=== PATIENT | female | born 1955 | race Two or more races ===

== ENCOUNTER 2025-02-26 21:11 | Inpatient (IN) | payer OTHER ==
[~2025-02-26] VITALS: Ht 154.9 cm; Wt 54.0 kg
--- NOTE | 2025-02-26 21:43 | NUR ---
PACIENTE ALERTA Y ORIENTADA X3, ACOMPANADA DE HIJA. REFIEREN 5 BENITEZ CON VOMITOS, DOLOR ABDOMINAL Y HOY JADEN EVACUACION CON HERNANDO.
[2025-02-26] MEDS ORDERED: FAMOTIDINE/PF 20 MG/2 ML VIAL IV ONE (22:30)
[2025-02-26] MEDS ORDERED: METRONIDAZOLE/SODIUM CHLORIDE 500 MG/100 ML PIGGYBACK IV ONE ×2 (22:30→23:23)
[2025-02-26] MEDS ORDERED: CIPROFLOXACIN IN 5 % DEXTROSE 400 MG/200 ML PIGGYBAG IV ONE ×2 (22:30→23:23)
[2025-02-26] MEDS ORDERED: 0.9 % SODIUM CHLORIDE 1,000 ML IV SCH (22:30)
[2025-02-26] MEDS ORDERED: FAMOTIDINE/PF 20 MG/2 ML VIAL ONE (23:23)
--- NOTE | 2025-02-27 00:35 | NUR ---
SE EDUCA A PACIENTE SOBRE TRATAMIENTO MEDICO EL CUAL REFIERE ENTENDER SE REALIZA COLECCION DE MUESTRAS BRADY ORDEN MEDICA Y BAJO MEDIDAS ASEPTOCAS.
[2025-02-27] MEDS ORDERED: KETOROLAC TROMETHAMINE 30 MG VIAL ONE (00:40)
[2025-02-27 00:47] LABS: BASO % 0.3 % (0.1-1.2); EOS # 0.01 (0.04-0.54); EOS % 0.1 % (0.7-7.0); LYMPH # 1.07 (1.18-3.74); LYMPH % 7.8 % (19.3-53.1); MEAN PLATELET VOLUME 10.60 fl (9.4-12.4); MONO # 0.81 (0.24-0.82); MONO % 5.9 % (4.7-12.5); NEUT # 11.72 (1.56-6.13); NEUT % 85.5 % (34.0-71.1); RED CELL DISTRIBUTION WIDTH 16.3 % (11.6-14.4)
[2025-02-27 00:50] LABS: URINE APPEARANCE Cloudy; URINE BILIRRUBIN Negative (NEGATIVE); URINE BLOOD Negative; URINE COLOR Dark Yellow; URINE GLUCOSE Negative (NEGATIVE); URINE LEUKOCYTE Trace; URINE NITRATE Negative; URINE PROTEIN 30 (NEGATIVE); URINE UROBILINOGEN 1.0 E.U./dl
[2025-02-27 00:54] LABS: URINE BACTERIA 49.1 uL (0.0-1933); URINE CAST 2.63 uL (0.0-1.40); URINE EPITHELIAL CELLS 22.7 uL (0.0-38.8); URINE RBC 17.3 uL (0.0-20.8); URINE WBC 9.2 uL (0.0-23.2)
[2025-02-27 01:00] LABS: COVID-19 AG NEGATIVE (NEGATIVE)
[2025-02-27 01:00] LABS: URINE KETONE 40 (NEGATIVE)
[2025-02-27 01:01] LABS: ERYTHROCYTE SEDIMENTATION RATE 106 mm/hr (0-30)
[2025-02-27 01:08] LABS: ALT/SGPT 26.0 U/L (12-78); AST/SGOT 31.0 U/L (15-37); BILIRUBIN TOTAL 0.67 mg/dL (0.3-1.2); BUN CREA RATIO 17.0 (7.0-25.0); CREATININE SERUM 0.53 mg/dL (0.55-1.02); GFR 113.72; GLOBULINA 4.5 G/DL (2.4-3.5); GLUCOSE FASTING 135.0 mg/dL (65-100); OSMOLALITY SERUM 278.0 MOSM/KG (275-295)
[2025-02-27 02:24] LABS: URINE MUCUS HEAVY
--- NOTE | 2025-02-27 07:49 | NUR ---
SE RECIBE PTE FEMENINA DE 69 YR ALERTA CONCIENTE Y TRANQUILA EN MYRTLE CON BARANDAS ELEVADA. SE LE GINETTE S/V Y SE DOCUEMTA SE MANTRIENE ORIENTADA DE NADA POR BOCA NPO Y SE MANTIENE BAJO OBSERVACION.
[2025-02-27] MEDS ORDERED: LIDOCAINE HCL VISCOUS 20MG/ML BLIST 15ML MM ONE (08:22)
--- NOTE | 2025-02-27 08:46 | NUR ---
SE LE INCERTA TUBO NASOGASTRICO STEPHANIE 14 EN FOSA NASAL DERCHA CON SUBCION INTERMITENTE. SE GINETTE MEDIDAS ASEPTICA EN EL PROCEDIMIENTO. SE MANTIENE BAJO OBSERVACION.
[2025-02-27] MEDS ORDERED: PANTOPRAZOLE SODIUM 40 MG/VIAL VIAL IV SCH (12:08)
[2025-02-27] MEDS ORDERED: PIPERACILLIN/TAZOBACTAM SODIUM 3.375 GM in 0.9 % SODIUM CHLORIDE 100 ML IV SCH (12:08)
[2025-02-27] MEDS ORDERED: MORPHINE SULFATE 4 MG/ML CARTRIDGE IV PRN (12:15)
[2025-02-27] MEDS ORDERED: AA 2.36%/D6.8W/FAT/E-LYTES NO9 1,440 ML IV SCH (17:00)
[2025-02-27 19:39] LABS: INR 1.11
[2025-02-27 19:51] LABS: BUN CREA RATIO 23.0 (7.0-25.0); CHOL HDL RATIO 4.1 (0-5.0); CREATININE SERUM 0.31 mg/dL (0.55-1.02); GFR 211.15; GLUCOSE FASTING 101.0 mg/dL (65-100); HDL 45.0 mg/dl (40-60); LDL 131.0 mg/dl (0-130); OSMOLALITY SERUM 274.0 MOSM/KG (275-295); VLDL 9.0 (0-39)
[2025-02-28 03:04] VITALS: BP 122/73; O2SAT 98
[2025-02-28 08:35] VITALS: BP 133/71; O2SAT 97
[2025-02-28] MEDS ORDERED: SODIUM CL 0.9% 100 ML IV.SOLN IV ONE (19:13)
[2025-02-28 19:20] VITALS: BP 153/57
[2025-02-28 19:23] VITALS: BP 145/80
[2025-03-01 01:15] VITALS: BP 140/79; O2SAT 96
[2025-03-01 07:50] LABS: BASO % 0.6 % (0.1-1.2); EOS # 0.25 (0.04-0.54); EOS % 3.0 % (0.7-7.0); LYMPH # 0.68 (1.18-3.74); LYMPH % 8.1 % (19.3-53.1); MEAN PLATELET VOLUME 10.70 fl (9.4-12.4); MONO # 0.75 (0.24-0.82); MONO % 9.0 % (4.7-12.5); NEUT # 6.60 (1.56-6.13); NEUT % 78.8 % (34.0-71.1); RED CELL DISTRIBUTION WIDTH 16.1 % (11.6-14.4)
[2025-03-01 09:51] VITALS: BP 145/80; O2SAT 98
[2025-03-01] MEDS ORDERED: DEXTROSE 50 % IN WATER 0.5 G/ML DISP.SYRIN IV PRN (11:45)
[2025-03-01] MEDS ORDERED: OxyCODONE HCL 5 MG TABLET (ROXICODONE) PO PRN (11:45)
[2025-03-01] MEDS ORDERED: ONDANSETRON HCL 2 MG/ML VIAL IV PRN (11:45)
[2025-03-01] MEDS ORDERED: RINGERS SOLUTION,LACTATED 1,000 ML IV SCH (11:45)
[2025-03-01] MEDS ORDERED: MORPHINE SULFATE 4 MG/ML CARTRIDGE IV PRN (11:45)
[2025-03-01] MEDS ORDERED: LIDOCAINE HCL 1% 20 ML VIAL IJ ONE (12:45)
[2025-03-01] MEDS ORDERED: BUPIVACAINE HCL 30 ML VIAL IJ ONE (12:45)
[2025-03-01] MEDS ORDERED: GABAPENTIN 300 MG CAPSULE PO SCH (13:00)
[2025-03-01] MEDS ORDERED: HYOSCYAMINE SULFATE 0.125 MG TAB.SUBL SL SCH (13:00)
[2025-03-01] MEDS ORDERED: ACETAMINOPHEN 500 MG GEL..CAP PO SCH (14:00)
[2025-03-01] MEDS ORDERED: SUGAMMADEX SODIUM 200 MG/2 ML VIAL IV ONE (14:30)
[2025-03-01 16:43] LABS: BASO % 0.3 % (0.1-1.2); EOS # 0.27 (0.04-0.54); EOS % 2.4 % (0.7-7.0); LYMPH # 1.09 (1.18-3.74); LYMPH % 9.5 % (19.3-53.1); MEAN PLATELET VOLUME 10.50 fl (9.4-12.4); MONO # 0.60 (0.24-0.82); MONO % 5.2 % (4.7-12.5); NEUT # 9.37 (1.56-6.13); NEUT % 82.0 % (34.0-71.1); RED CELL DISTRIBUTION WIDTH 16.0 % (11.6-14.4)
[2025-03-01] MEDS ORDERED: LACTULOSE 20 G/30 ML BLIST.PACK PO SCH (17:00)
[2025-03-01] MEDS ORDERED: FAMOTIDINE/PF 20 MG/2 ML VIAL IV PUSH SCH (21:00)
[2025-03-02 06:23] LABS: BASO % 0.3 % (0.1-1.2); EOS # 0.12 (0.04-0.54); EOS % 1.0 % (0.7-7.0); LYMPH # 0.78 (1.18-3.74); LYMPH % 6.6 % (19.3-53.1); MEAN PLATELET VOLUME 10.70 fl (9.4-12.4); MONO # 0.50 (0.24-0.82); MONO % 4.3 % (4.7-12.5); NEUT # 10.28 (1.56-6.13); NEUT % 87.4 % (34.0-71.1); RED CELL DISTRIBUTION WIDTH 16.3 % (11.6-14.4)
[2025-03-02 07:20] LABS: ALT/SGPT 25.0 U/L (12-78); AST/SGOT 70.0 U/L (15-37); BILIRUBIN TOTAL 0.76 mg/dL (0.3-1.2); BUN CREA RATIO 14.0 (7.0-25.0); CHOL HDL RATIO 3.5 (0-5.0); GFR 228.04; GLOBULINA 2.7 G/DL (2.4-3.5); GLUCOSE FASTING 126.0 mg/dL (65-100); HDL 35.0 mg/dl (40-60); LDL 76.0 mg/dl (0-130); OSMOLALITY SERUM 276.0 MOSM/KG (275-295); VLDL 9.0 (0-39)
[2025-03-02 07:28] LABS: CREATININE SERUM 0.29 mg/dL (0.55-1.02)
[2025-03-02 07:31] LABS: UREA CLEARANCE 55.3 ML/MIN
[2025-03-02 09:33] VITALS: BP 121/74; O2SAT 95
[2025-03-02 10:26] LABS: INR 1.17
[2025-03-02 10:47] LABS: FOLIC ACID > 20.00 ng/ml (4.78-20)
[2025-03-02] MEDS ORDERED: POTASSIUM CHLORIDE IN WATER 100 ML IV NR (11:00)
[2025-03-02] MEDS ORDERED: GABAPENTIN 300 MG CAPSULE PO PRN (14:24)
[2025-03-02 16:49] VITALS: BP 125/75; O2SAT 96
[2025-03-02] MEDS ORDERED: ENOXAPARIN SODIUM 40 MG/0.4 ML SYRINGE SUBCUTANEO SCH (17:00)
[2025-03-02] MEDS ORDERED: AA 3.31 %/D9.8W/FAT/E-LYTES 10 2,053 ML IV SCH (17:00)
[2025-03-03 01:42] VITALS: BP 129/71; O2SAT 95
[2025-03-03 08:38] VITALS: BP 117/75; O2SAT 98
[2025-03-03] MEDS ORDERED: ENOXAPARIN SODIUM 40 MG/0.4 ML SYRINGE SUBCUTANEO SCH (09:00)
[2025-03-03 20:28] VITALS: BP 120/75; O2SAT 98
[2025-03-04 02:45] VITALS: BP 113/75; O2SAT 97
[2025-03-04 09:05] VITALS: BP 135/74; O2SAT 93
[2025-03-04 10:38] LABS: BASO % 0.3 % (0.1-1.2); EOS # 0.37 (0.04-0.54); EOS % 3.0 % (0.7-7.0); LYMPH # 0.57 (1.18-3.74); LYMPH % 4.6 % (19.3-53.1); MEAN PLATELET VOLUME 10.80 fl (9.4-12.4); MONO # 0.94 (0.24-0.82); MONO % 7.6 % (4.7-12.5); NEUT # 10.40 (1.56-6.13); NEUT % 83.9 % (34.0-71.1); RED CELL DISTRIBUTION WIDTH 16.8 % (11.6-14.4)
[2025-03-04 10:54] LABS: ALT/SGPT 23.0 U/L (12-78); AST/SGOT 35.0 U/L (15-37); BILIRUBIN TOTAL 1.06 mg/dL (0.3-1.2); BUN CREA RATIO 12.0 (7.0-25.0); CREATININE SERUM 0.5 mg/dL (0.55-1.02); GFR 121.62; GLOBULINA 3.5 G/DL (2.4-3.5); GLUCOSE FASTING 159.0 mg/dL (65-100); OSMOLALITY SERUM 279.0 MOSM/KG (275-295)
[2025-03-04] MEDS ORDERED: POTASSIUM BICARBONATE/CIT AC 25 MEQ TABLET.EFF PO STA (12:54)
[2025-03-04] MEDS ORDERED: CIPRO500 MG PO (13:05)
[2025-03-04] MEDS ORDERED: HYOSCYAMINE0.125 M1 SL (13:05)
== END 2025-03-04 14:10 | disposition home or self-care (01) | DRG 330 ==
LOC: ER 21:12 → MEDI 02-27 12:16 → SEC-K 02-27 12:16 → MEDI 02-27 15:34
PROVIDERS: Student in an Organized Health Care Education/Training Program; Surgery; ADMIT Internal Medicine; ATTEND Internal Medicine
PROC: BW21YZZ Computerized Tomography (CT Scan) of Abdomen and Pelvis using Other Contrast (ICD-10-PCS; 2025-02-26)
PROC: 0DH68UZ Insertion of Feeding Device into Stomach, Via Natural or Artificial Opening Endoscopic (ICD-10-PCS; 2025-02-27)
PROC: BW28ZZZ Computerized Tomography (CT Scan) of Head (ICD-10-PCS; 2025-02-28)
PROC: 02HV33Z Insertion of Infusion Device into Superior Vena Cava, Percutaneous Approach (ICD-10-PCS; 2025-02-28)
PROC: 30233N1 Transfusion of Nonautologous Red Blood Cells into Peripheral Vein, Percutaneous Approach (ICD-10-PCS; 2025-02-28)
PROC: 05H Upper Veins, Insertion (ICD-10-PCS; 2025-03-01)
PROC: 0DTF4ZZ Resection of Right Large Intestine, Percutaneous Endoscopic Approach (ICD-10-PCS; principal; 2025-03-01 10:30)
PROC: BB24ZZZ Computerized Tomography (CT Scan) of Bilateral Lungs (ICD-10-PCS; 2025-03-02)
PROC: 4A12X4Z Monitoring of Cardiac Electrical Activity, External Approach (ICD-10-PCS; 2025-03-04)
DX: K56.699 Other intestinal obstruction unspecified as to partial versus complete obstruction (principal); C18.0 Malignant neoplasm of cecum; K57.92 Diverticulitis of intestine, part unspecified, without perforation or abscess without bleeding; C78.7 Secondary malignant neoplasm of liver and intrahepatic bile duct; D64.9 Anemia, unspecified